=== PATIENT | male | born 1975 | race Caucasian/White ===

== ENCOUNTER 2024-10-14 18:19 | Emergency (ER) | payer BC, SELFPAY ==
[2024-10-14 18:31] VITALS: BP 141/89
--- NOTE | 2024-10-14 18:45 | ED.GENMED ---
ED Provider Triage
<Christian Feliciano PA-C - Last Filed: 10/14/24 18:46>
-
Patient seen by provider in Triage?: Seen in Triage
48-year-old male otherwise healthy presents after head injury. He leaned forward hitting the top of his head on the corner of a cabinet. He nearly lost consciousness. He was very dazed and confused per the . He still notes significant
pressure around the temples of his head. He denies any double vision or blurry vision. There is been no vomiting. No neck pain.
Patient appears well at triage she has an abrasion to the superior scalp but no laceration. Long discussion with patient and significant other regarding treatment options. Low can skull fracture or intracranial hemorrhage secondary to the
mechanism however family and patient quite concerned about his ongoing pressure and change from baseline. CT of the head was ordered
Patient seen by provider in triage but warrants further assessment
History of Present Illness
<Christian Feliciano PA-C - Last Filed: 10/14/24 18:46>
General
Chief Complaint: Head Injury
Time Seen by Provider: 10/14/24 19:28
<Matty Westbrook Jr., PA-C - Last Filed: 10/14/24 21:37>
General
Source: patient
Exam Limitations: none
Nursing documentation reviewed up to this point in time: agreed with
History of Present Illness
History of Present Illness:
48-year-old male presenting to the emergency department today with concerns of hitting the top of his head prior to arrival did not lose consciousness not on blood thinners does feel a little bit lightheaded but has no sound sensitivity to light and
noise.
Review of Systems
<Matty Westbrook Jr., PA-C - Last Filed: 10/14/24 21:37>
Review of Systems
Allergies reviewed?: Yes
All Other Systems: ROS reviewed and negative except as documented in HPI and ROS
Phy Exam
<Matty Westbrook Jr., PA-C - Last Filed: 10/14/24 21:37>
Physical Exam
Physical Exam:
GENERAL: Alert , in no apparent distress
EYE: pupils equal and reactive
NECK: Supple, no significant adenopathy.
ENT: o/p clr, mmm.
CARDIAC: Regular rate and rhythm .
LUNGS: Clear breath sounds bilaterally, no acute respiratory distress, no wheezes/rales/rhonchi
ABDOMEN: Soft, without focal tenderness, no r/g, no cvat
NEUROLOGICAL: Alert and oriented, no focal neuro deficits 5 out of 5 upper and lower extremity strength normal sensation with palpating bilaterally.
SKIN: Warm and dry, skin intact.
MUSCULOSKELETAL: No edema, well perfused.
PSYCH: Normal and appropriate interaction.
Course
<Christian Feliciano PA-C - Last Filed: 10/14/24 18:46>
Orders/Labs/Results
Orders:
Orders
10/14/24 18:44
CT Head W/o Iv Contrast Urgent
Comment:
Reason For Exam: head injury
Vital Signs
Initial and Last Documented VS:
Initial Vital Signs
Temp Pulse Resp BP Pulse Ox
99 F 79 16 141/89 98
10/14/24 18:31 10/14/24 18:31 10/14/24 18:31 10/14/24 18:31 10/14/24 18:31
Last Documented Vital Signs
Temp Pulse Resp BP Pulse Ox
99 F 75 18 138/82 99
10/14/24 18:31 10/14/24 20:56 10/14/24 20:56 10/14/24 20:56 10/14/24 20:56
<Matty Westbrook Jr., PA-C - Last Filed: 10/14/24 21:37>
Orders/Labs/Results
Orders:
Orders
10/14/24 18:44
CT Head W/o Iv Contrast Urgent
Comment:
Reason For Exam: head injury
Vital Signs
Initial and Last Documented VS:
Initial Vital Signs
Temp Pulse Resp BP Pulse Ox
99 F 79 16 141/89 98
10/14/24 18:31 10/14/24 18:31 10/14/24 18:31 10/14/24 18:31 10/14/24 18:31
Last Documented Vital Signs
Temp Pulse Resp BP Pulse Ox
99 F 75 18 138/82 99
10/14/24 18:31 10/14/24 20:56 10/14/24 20:56 10/14/24 20:56 10/14/24 20:56
<Matty Westbrook Jr., PA-C - Last Filed: 10/14/24 21:37>
MDM/Problems Addressed
MDM/Problems Addressed:
48-year-old male presenting to the emergency department after hitting his head prior to arrival. Here CT scan negative neurologically intact does have some symptoms consistent with concussion. Vies to rest over the next few days and follow-up
closely. Return precautions given.
<Matty Westbrook Jr., PA-C - Last Filed: 10/14/24 21:37>
*Critical Care Note
Total Time (30-74mins, 75-104mins- exclusive of procedures): Not Applicable
ED Attending Note
<Christian Feliciano PA-C - Last Filed: 10/14/24 18:46>
-
Portions of this chart may have been created with voice recognition software.� Occasional wrong word or��sound alike� substitutions may have occurred due to the inherent limitations of voice recognition software.
Discharge Plan
Departure
Patient Disposition: Home (Routine Discharge)
Date of Disposition: 10/14/24
Time of Disposition: 20:12
Patient with high blood pressure during this ER visit?: No
Condition: Good
Covid-19: Not Applicable
Discharge Problem:
Minor head injury
Instructions: Concussion, Adult (DC)
Activity Restrictions/Additional Instructions:
You came to the emergency department today after hitting her head. Here you had a normal CT scan. You likely have a concussion. Please gradually increase activity over time. Return to the emergency department for any worsening, new or concerning
symptoms.
Interventions
Interventions:
*Risk Screen - Suicide Last Done: 10/14/24 18:31
*General Assessment Last Done: 10/14/24 18:31
*Neglect/Abuse Screening Last Done: 10/14/24 18:31
*Nursing Disposition Last Done: 10/14/24 20:57
ED- Neurological Assessment Last Done: 10/14/24 20:55
ED-Skin Assessment Last Done: 10/14/24 20:55
Discharge Date and Time
Discharge Date/Time: 10/14/24 20:58
Print Language: OMANI
[2024-10-14 20:56] VITALS: BP 138/82
== END 2024-10-14 20:58 | disposition home or self-care (01) ==
LOC: EMR 18:19
PROVIDERS: EMERGENCY PHYSICIAN Student in an Organized Health Care Education/Training Program
DX: S09.90XA Unspecified injury of head, initial encounter (principal); W22.09XA Striking against other stationary object, initial encounter
CPT/HCPCS: 99284; 70450

== ENCOUNTER 2025-04-16 12:41 | Emergency (ER) | payer BC, SELFPAY ==
[2025-04-16 12:42] VITALS: BP 142/81
--- NOTE | 2025-04-16 14:33 | ED.GENMED ---
History of Present Illness
General
Chief Complaint: Skin Surface Trauma
Source: patient
Time Seen by Provider: 04/16/25 14:10
History of Present Illness
History of Present Illness:
49-year-old male with no significant past medical history presenting to the emergency department for evaluation after he was unloading [employer] when one of the items broke causing him to sustain laceration to the left ring finger along the dorsal
surface at the level of the proximal phalanx. No other injuries were sustained. Patient is left-hand dominant. He does not believe his tetanus is up-to-date but declines update here in the emergency department.
Past History
Past History
ED Past Medical History: None
ED Past Surgical History: Orthopedic
Social History
Tobacco: Non-smoker
Alcohol: Occasional
Drug: None
Personal:
Living: with family
Review of Systems
Review of Systems
All Other Systems: ROS reviewed and negative except as documented in HPI and ROS
Phy Exam
Physical Exam
Physical Exam:
GENERAL: Alert , in no apparent distress
EYE: conjunctiva clear
Head: Normocephalic atraumatic
NECK: Supple,
ENT: mmm.
LUNGS: no acute respiratory distress
NEUROLOGICAL: Alert and oriented
SKIN: Warm and dry, superficial flap laceration measuring approximately 1 cm in size, no active bleeding, no tendon or nerve injury, sensation intact, full range of motion.
MUSCULOSKELETAL: well perfused.
PSYCH: Normal and appropriate interaction.
Scores
Heart Failure Risk
Heart Failure Risk Score: Not Applicable
Heart Score for Chest Pain Patients
STEMI patient?: Not applicable
Withdrawal Assessment of Alcohol
Withdrawal Assessment Completed?: Not applicable
Course
Vital Signs
Initial and Last Documented VS:
Initial Vital Signs
Temp Pulse Resp BP Pulse Ox
97.7 F 67 16 142/81 99
04/16/25 12:42 04/16/25 12:42 04/16/25 12:42 04/16/25 12:42 04/16/25 12:42
Last Documented Vital Signs
Temp Pulse Resp BP Pulse Ox
97.7 F 67 16 142/81 99
04/16/25 12:42 04/16/25 12:42 04/16/25 12:42 04/16/25 12:42 04/16/25 14:34
Procedures
Laceration Closure
Left Fourth Finger:
Status of Wound: clean
Size of Wound in cm: 1
Description of Wound Edges: flap-well vascularized
Preparation: cleaned with saline
Type of Closure: Dermabond-skin glue
MDM/Problems Addressed
Differential Diagnosis Includes:
Superficial laceration
No concern for tendon or nerve injury
No concern for fracture
MDM/Problems Addressed:
49-year-old male presented to the ER for evaluation following superficial laceration to the left ring finger. No other injuries were sustained. Laceration repaired as above without difficulty. Patient advised on wound care. Aware of return
precautions.
*Pulse Oximetry
SaO2: 99
Oxygen Mode of Delivery: Room air
Patient hypoxic: no
*Critical Care Note
Total Time (30-74mins, 75-104mins- exclusive of procedures): Not Applicable
ED Attending Note
-
Portions of this chart may have been created with voice recognition software.� Occasional wrong word or��sound alike� substitutions may have occurred due to the inherent limitations of voice recognition software.
Discharge Plan
Departure
Patient Disposition: Home (Routine Discharge)
Date of Disposition: 04/16/25
Time of Disposition: 14:33
Patient with high blood pressure during this ER visit?: Yes
Discharge Problem:
Laceration of left ring finger
Instructions: Laceration Repair With Glue (DC)
Referrals:
NONE,* [Family Provider, Internal Medicine]
Discharge Date and Time
Print Language: BRAZILIAN
== END 2025-04-16 15:00 | disposition home or self-care (01) ==
LOC: EMR 12:41
PROVIDERS: EMERGENCY PHYSICIAN Emergency Medicine
DX: S61.215A Laceration without foreign body of left ring finger without damage to nail, initial encounter (principal); W45.8XXA Other foreign body or object entering through skin, initial encounter; Y93.G1 Activity, food preparation and clean up
CPT/HCPCS: 99282; 12001